=== PATIENT | male | born 1940 | race Caucasian/White ===

== ENCOUNTER → 2016-09-04 | Outpatient (CLI) | payer OTHER ==
[~2016-09-04] MED LIST: ATOR10TA82 PO; CHOL100010 PO; HYDR25TA5 PO; OMEG10007 PO
[2016-09-04 14:20] LABS: ALT/SGPT 31 U/L (12-78); AST/SGOT 20 U/L (15-37); BLOOD UREA NITROGEN 23 mg/dl (7-18); BUN/CREATININE RATIO 25.8 (10-20); CALCIUM 9.2 mg/dl (8.5-10.1); CARBON DIOXIDE 29 mmol/L (21-32); CHLORIDE 107 mmol/L (98-107); CHOLESTEROL 119 mg/dl (0-200); CREATININE 0.89 mg/dl (0.60-1.40); GLUCOSE 96 mg/dl (70-99); POTASSIUM 3.9 mmol/L (3.5-5.1); SODIUM 143 mmol/L (136-145); TRIGLYCERIDES 115 mg/dl (0-150); VERY LOW DENSITY LIPOPROT CALC 23 mg/dl
[2016-09-04 14:27] LABS: HEMATOCRIT 40.5 % (42-52); MEAN CORPUSCULAR HEMOGLOBIN 29.7 pg (25-34); MEAN CORPUSCULAR HGB CONC 33.3 g/dl (32-36); MEAN PLATELET VOLUME 10.3 fL (7.4-10.4); PLATELET COUNT 197 K/uL (130-400); RED BLOOD COUNT 4.55 M/uL (4.7-6.1); WHITE BLOOD COUNT 10.05 K/uL (4.8-10.8)
[2016-09-04 14:30] LABS: ALB/GLOB RATIO 1.1 (0.9-2); ALKALINE PHOSPHATASE 47 U/L (45-117); CHOLESTEROL/HDL RATIO 2.3; HDL CHOLESTEROL 52 mg/dl; LDL CHOLESTEROL CALCULATED 44 mg/dl; PROSTATE SPECIFIC ANTIGEN 0.893 ng/ml (0.000-4.000)
[2016-09-04 14:43] LABS: BASO % 0.4 %; BASO ABS # 0.04 K/uL (0-0.2); COMPLETE YES; EOS % 1.6 %; LYMPH % 63.4 %; LYMPH ABS # 6.37 K/uL (1.2-3.4); MONO % 4.3 %; NEUT % 30.3 %; SMUDGE CELLS PRESENT
--- NOTE | 2016-09-08 10:35 | CODING QUERY MEDICAL NECESSITY ---
SUPPORTING DIAGNOSIS NEEDED A supporting diagnosis is required for the test/procedure performed on this patient in order for us to be reimbursed by the patient's insurance. Please provide a supporting diagnosis for the following test/procedure listed below next to the test name along with your signature. *If there is no additional diagnosis for this patient that would support the following test/procedure please document that below next to the test/procedure. Test(s)/Procedure(s) that require a supporting diagnosis: DOS 09/04 * Vitamin D DIAGNOSIS: * PSA DIAGNOSIS: Provider Signature: Date: Thank you Sera [facility] Health Information Management Once completed, please kindly fax back to [phone] For questions please call [phone]
== END | disposition home or self-care (01) ==
LOC: C.LABBC 11:11
PROVIDERS: ATTEND Internal Medicine Geriatric Medicine
DX: I10 Essential (primary) hypertension (principal); C91.10 Chronic lymphocytic leukemia of B-cell type not having achieved remission; M19.90 Unspecified osteoarthritis, unspecified site; E78.5 Hyperlipidemia, unspecified

== ENCOUNTER → 2016-12-18 | Outpatient (CLI) | payer OTHER ==
[2016-12-18 17:27] LABS: BLOOD UREA NITROGEN 25 mg/dl (7-18)
== END | disposition home or self-care (01) ==
LOC: C.LABBC 13:38
PROVIDERS: ATTEND Physician Assistant
DX: Z00.00 Encounter for general adult medical examination without abnormal findings (principal); R51 Headache

== ENCOUNTER → 2016-12-23 | Outpatient (CLI) | payer OTHER ==
[~2016-12-23] MED LIST changes: +GADAVIST IV PRN
--- NOTE | 2016-12-23 13:27 | DIAGNOSTIC IMAGING REPORT ---
MRI OF THE BRAIN WITHOUT AND WITH IV CONTRAST CLINICAL HISTORY: Frequent headaches and retro-orbital pain COMPARISON STUDY: No previous studies for comparison. TECHNIQUE: MRI of the brain was performed from the vertex to the skull base utilizing various T1 and T2 weighted sequences. Following the IV administration of 7.5 mL of Gadavist contrast, additional enhanced images were obtained. FINDINGS: Sagittal T1, axial diffusion, proton density and T2 weighted axial, coronal FLAIR, and pre and post axial T1-weighted images were acquired. These were supplemented with post gadolinium coronal T1 weighted images. No intra or extra-axial mass lesions are visualized. Axial diffusion-weighted images reveal no evidence of acute or subacute infarction. There is no evidence of ventricular dilatation. Proton density T2-weighted and FLAIR images reveal mild foci of increased T2 signal within the periventricular white matter, likely on a small vessel basis. There are no abnormal flow voids. There is no evidence of pathologic enhancement. IMPRESSION: Essentially normal MRI of the brain for age. Electronically signed by: Faheem Arrington M.D. 12/23/2016 1:25 PM Dictated Date/Time: 12/23/2016 1:23 PM
== END | disposition home or self-care (01) ==
LOC: C.MRIBC 12:20
PROVIDERS: ATTEND Physician Assistant
DX: R51 Headache (principal)

== ENCOUNTER → 2017-02-10 | Outpatient (CLI) | payer OTHER ==
[~2017-02-10] MED LIST changes: -GADAVIST IV PRN
--- NOTE | 2017-02-10 11:42 | DIAGNOSTIC IMAGING REPORT ---
CHEST CT WITHOUT CONTRAST CT DOSE: 326.95 mGy.cm HISTORY: Pulmonary nodule R91.1 Solitary pulmonary [id number] TECHNIQUE: Multiaxial CT images of the chest were performed without contrast. COMPARISON: 08/11/2016 FINDINGS: The 5 mm nodule of the right middle lobe is unchanged. This appears represent a linear series of 3 small nodules again unchanged from the prior study. Lungs otherwise appear clear. There is no significant hilar or mediastinal adenopathy. There is been no change compared to the prior study. IMPRESSION: 1. Right middle lobe nodularity unchanged from the prior study. 2. Study is otherwise unremarkable. 3. Follow-up per Fleischner criteria. Please refer to below summary of Fleischner criteria recommendations for follow-up of incidental CT nodules (Daniela Amaya, Guidelines for management of small pulmonary nodules detected on CT scans: A statement from the Fleischner Society, Radiology 237: [phone].) SOLID NODULES Solitary nodule size: <6 mm * low risk patients: no follow-up needed * high risk patients: optional CT at 12 months Solitary nodule size: 6-8 mm * low risk patients: follow-up at 6-12 months, then consider further follow-up at 18-24 months * high risk patients: initial follow-up CT at 6-12 months and then at 18-24 months if no change Solitary nodule size: >8 mm * either low or high risk patients - consider follow-up CT at 3 months, and/or CT-PET, and/or biopsy Multiple nodules size: <6 mm * low risk patients: no routine follow-up * high risk patients: optional CT at 12 months Multiple nodules size: 6-8 mm * low risk patients: follow-up at 3-6 months, then consider further follow-up at 18-24 months * high risk patients: follow-up at 3-6 months, then at 18-24 months if no change Multiple nodules size: >8 mm * low risk patients: follow-up at 3-6 months, then consider further follow-up at 18-24 months * high risk patients: follow-up at 3-6 months, then at 18-24 months if no change Note: newly detected indeterminate nodule in persons 35 years of age or older. * Low risk patients: minimal or absent history of smoking and/or other known risk factors * high risk patients: history of smoking or of other known risk factors (e.g. first degree relative with lung cancer, or exposure to asbestos, radon, uranium) * if a nodule up to 8 mm is partly solid or is ground glass further follow-up is required after 24 months to exclude possible slow growing adenocarcinoma (LIGIA) SUBSOIL NODULES Solitary pure ground-glass nodule * nodule size <6 mm - no CT follow-up required * nodule size >=6 mm - follow-up CT at 6-12 months, then every 2 years until 5 years Solitary part-solid nodule * nodule size <6 mm - no CT follow-up required * nodule size >=6 mm - follow-up CT at 3-6 months. If unchanged, and solid component remains <6 mm, then annual follow-up for 5 years Multiple subsolid nodules * nodule size <6 mm - follow-up CT at 3-6 months, consider further follow-up at 2 and 4 years if stable * nodule size >=6 mm - follow-up CT at 3-6 months, subsequent management based on the most suspicious nodule(s) Electronically signed by: Saul Ramey M.D. 02/10/2017 11:40 AM Dictated Date/Time: 02/10/2017 11:35 AM
== END | disposition home or self-care (01) ==
LOC: C.CTS 10:29
PROVIDERS: ATTEND Internal Medicine Geriatric Medicine
DX: R91.1 Solitary pulmonary nodule (principal)

== ENCOUNTER → 2017-04-15 | Outpatient (CLI) | payer OTHER ==
[~2017-04-15] MED LIST changes: -ATOR10TA82 PO; +ATOR10TA88 PO; -CHOL100010 PO
[2017-04-15 17:04] LABS: ALT/SGPT 29 U/L (12-78); AST/SGOT 18 U/L (15-37); BLOOD UREA NITROGEN 24 mg/dl (7-18); BUN/CREATININE RATIO 27.7 (10-20); CALCIUM 9.4 mg/dl (8.5-10.1); CARBON DIOXIDE 29 mmol/L (21-32); CHLORIDE 109 mmol/L (98-107); CREATININE 0.85 mg/dl (0.60-1.40); GLUCOSE 82 mg/dl (70-99); POTASSIUM 4.1 mmol/L (3.5-5.1); SODIUM 142 mmol/L (136-145)
[2017-04-15 17:07] LABS: ALB/GLOB RATIO 1.2 (0.9-2); ALKALINE PHOSPHATASE 43 U/L (45-117)
[2017-04-15 19:56] LABS: BASO % 0.3 %; BASO ABS # 0.05 K/uL (0-0.2); COMPLETE YES; ECHINOCYTES 1+; EOS % 0.9 %; HEMATOCRIT 41.5 % (42-52); IG% 0.1 %; LYMPH % 64.8 %; LYMPH ABS # 9.26 K/uL (1.2-3.4); MEAN CELL VOLUME 88.5 fL (80-100); MEAN CORPUSCULAR HEMOGLOBIN 29.9 pg (25-34); MEAN CORPUSCULAR HGB CONC 33.7 g/dl (32-36); MEAN PLATELET VOLUME 9.9 fL (7.4-10.4); MONO % 3.3 %; NEUT % 30.6 %; PLATELET COUNT 219 K/uL (130-400); RED BLOOD COUNT 4.69 M/uL (4.7-6.1); SMUDGE CELLS PRESENT
== END | disposition home or self-care (01) ==
LOC: C.LABBC 13:24
PROVIDERS: ATTEND Nurse Practitioner Family
DX: D73.1 Hypersplenism (principal)

== ENCOUNTER 2017-07-14 13:12 | Emergency (ER) | payer OTHER ==
[~2017-07-14] VITALS: Ht 180.3 cm; Wt 78.0 kg
[~2017-07-14 13:12] MED LIST changes: +ATOR10TA82 PO; -ATOR10TA88 PO
[2017-07-14 13:13] VITALS: TEMP 36.8; Ht 180.3 cm; Wt 78.0 kg
--- NOTE | 2017-07-14 14:26 | EMERGENCY ROOM VISIT NOTE ---
History First contact with patient: 13:54 Chief Complaint: PENIS PAIN Stated Complaint: BLACK/BLUE PENIS Nursing Triage Summary: Thursday evening noticed penis was black and blue. States he thought he bumped it on thursday when he was apartment cleaning. Went to see Dr. Hopkins today and sent to ED for eval. History of Present Illness The patient is a 77 year old male who presents to the Emergency Room with complaints of black and blue penis that he first noticed approximately 4 days ago. The patient states he was doing a lot of housework, and thinks he may have bumped the penis, but does not remember any specific injury. He states that there is a small bump on the front of his foreskin that is a little bit sore and irritated. He did call his PCPs office today and spoke with the nurse, who told him to go to the ER for further evaluation. Patient denies any pain in the penis or testicles, any difficulty with urination, any urinary symptoms of dysuria, frequency, urgency, hematuria, cloudy or foul-smelling urine, or penile discharge. He denies any fever/chills, abdominal pain, back pain, diarrhea or constipation, rash. He does note that he has been feeling anxious about this bruise, and checked his blood pressure a few times, noting that it has been a little higher than usual, with the top number in the 140s. He states he will take an aspirin once in a while she gets a headache, but denies any daily blood thinners. He denies being sexually active, stating that his is in a longterm. Review of Systems A complete 10 point review of systems was reviewed with the patient with pertinent positives and negatives as per history of present illness. All else were negative. Past Medical/Surgical History Medical Problems: (1) Leukemia Family History FH: cancer FH: heart disease Social History Smoking Status: Former Smoker Marital Status: Housing Status: lives with significant other Current/Historical Medications Scheduled Atorvastatin (Lipitor), 10 MG PO DAILY Cholecalciferol (Vitamin D), 1,000 UNITS PO DAILY Fish Oil ([place]-3), 1,200 MG PO BID Hydrochlorothiazide (Hydrochlorothiazide), 25 MG PO DAILY Allergies NKA Physical Exam Vital Signs Date Time Temp Pulse Resp B/P (MAP) Pulse Ox O2 Delivery O2 Flow Rate FiO2 07/14/17 16:28 59 07/14/17 15:51 61 18 151/71 96 Room Air 07/14/17 14:54 98 Room Air 07/14/17 14:54 99 Room Air 07/14/17 13:50 67 18 156/75 97 Room Air 07/14/17 13:13 36.8 73 16 163/79 98 Room Air Physical Exam CONSTITUTIONAL: No acute distress. Well appearing and well nourished. Alert and oriented X 4 with normal affect. HEENT: Normocephalic, atraumatic. Pupils equal, round and reactive to light, EOMI. TMs normal. Pharynx normal. NECK: Supple, full active range of motion without discomfort. RESPIRATORY: Clear to auscultation bilaterally with no wheezing, crackles, rhonchi or stridor. Equal expansion bilaterally. CARDIOVASCULAR: Regular rate and rhythm with no murmurs, rubs or gallops. Normal peripheral perfusion. No edema. GASTROINTESTINAL: Soft, nontender, nondistended. Bowel sounds present in all quadrants. GENITOURINARY: Uncircumcised. There is an ecchymotic area mild central swelling on the anterior portion of the foreskin. No erythema, edema, or tenderness to palpation. No bleeding or discharge from the meatus noted. Scrotum is normal with no swelling or tenderness, no testicular tenderness or tenderness of the epididymis with palpation. MUSCULOSKELETAL: Full range of motion of all joints without discomfort. INTEGUMENTARY: No rash or other significant dermatologic conditions noted. NEUROLOGIC: Cranial nerves II-XII grossly intact. No focal neurologic deficits noted. Medical Decision & Procedures ER Provider Diagnostic Interpretation: Penile ULTRASOUND HISTORY: eval bump on penis, black and blue COMPARISON: None. FINDINGS: Real-time sonographic imaging of the penis was performed with sales representative meats images. No sonographic abnormality within the superficial soft tissues of the penis. No fluid collections or masses detected. IMPRESSION: No sonographic abnormality within the penis. Laboratory Results 07/14/17 14:30 Red Blood Count 4.70, Mean Corpuscular Volume 88.5, Mean Corpuscular Hemoglobin 30.9, Mean Corpuscular Hemoglobin Concent 34.9, Mean Platelet Volume 9.7, Neutrophils (%) (Auto) 30.2, Lymphocytes (%) (Auto) 65.5, Monocytes (%) (Auto) 3.4, Eosinophils (%) (Auto) 0.6, Basophils (%) (Auto) 0.2, Neutrophils # (Auto) 4.32, Lymphocytes # (Auto) 9.35, Monocytes # (Auto) 0.48, Eosinophils # (Auto) 0.09, Basophils # (Auto) 0.03 07/14/17 14:30 Test 07/14/17 14:30 White Blood Count 14.28 K/uL (4.8-10.8) Red Blood Count 4.70 M/uL (4.7-6.1) Hemoglobin 14.5 g/dL (14.0-18.0) Hematocrit 41.6 % (42-52) Mean Corpuscular Volume 88.5 fL (80-100) Mean Corpuscular Hemoglobin 30.9 pg (25-34) Mean Corpuscular Hemoglobin Concent 34.9 g/dl (32-36) Platelet Count 196 K/uL (130-400) Mean Platelet Volume 9.7 fL (7.4-10.4) Neutrophils (%) (Auto) 30.2 % Lymphocytes (%) (Auto) 65.5 % Monocytes (%) (Auto) 3.4 % Eosinophils (%) (Auto) 0.6 % Basophils (%) (Auto) 0.2 % Neutrophils # (Auto) 4.32 K/uL (1.4-6.5) Lymphocytes # (Auto) 9.35 K/uL (1.2-3.4) Monocytes # (Auto) 0.48 K/uL (0.11-0.59) Eosinophils # (Auto) 0.09 K/uL (0-0.5) Basophils # (Auto) 0.03 K/uL (0-0.2) RDW Standard Deviation 43.3 fL (36.4-46.3) RDW Coefficient of Variation 13.3 % (11.5-14.5) Immature Granulocyte % (Auto) 0.1 % Immature Granulocyte # (Auto) 0.01 K/uL (0.00-0.02) Smudge Cells PRESENT Prothrombin Time 10.7 SECONDS (9.0-12.0) Prothromb Time International Ratio 1.0 (0.9-1.1) Activated Partial Thromboplast Time 31.4 SECONDS (21.0-31.0) Partial Thromboplastin Ratio 1.2 Urine Color YELLOW Urine Appearance CLEAR (CLEAR) Urine pH 5.0 (4.5-7.5) Urine Specific [facility] 1.022 (1.000-1.030) Urine Protein NEG (NEG) Urine Glucose (UA) NEG (NEG) Urine Ketones NEG (NEG) Urine Occult Blood NEG (NEG) Urine Nitrite NEG (NEG) Urine Bilirubin NEG (NEG) Urine Urobilinogen NEG (NEG) Urine Leukocyte Esterase NEG (NEG) Anion Gap 9.0 mmol/L (3-11) Est Creatinine Clear Calc Drug Dose 68.6 ml/min Estimated GFR () 90.2 Estimated GFR (Non- 77.8 BUN/Creatinine Ratio 23.4 (10-20) Calcium Level 9.4 mg/dl (8.5-10.1) Total Bilirubin 2.1 mg/dl (0.2-1) Direct Bilirubin 0.3 mg/dl (0-0.2) Aspartate Amino Transf (AST/SGOT) 21 U/L (15-37) Alanine Aminotransferase (ALT/SGPT) 26 U/L (12-78) Alkaline Phosphatase 47 U/L (45-117) Total Protein 7.2 gm/dl (6.4-8.2) Albumin 3.9 gm/dl (3.4-5.0) Medical Decision CC: Patient presenting with complaint of bruising of penis Interpretation of Labs: Mild leukocytosis, no anemia, no significant electrolyte abnormalities, normal renal function, normal liver enzymes. Normal coagulation factors. UA negative for UTI, no hematuria. Differential Diagnosis: Includes, but not limited to ecchymosis secondary to trauma, urinary tract infection, epididymitis, phimosis/paraphimosis, among others. Medication Reconciliation: I attest that I have personally reviewed the patient' s current medication list. Vital signs review: I reviewed the patient's vital signs and interpret them as follows: T: Afebrile; BP: Hypertensive; HR: Within normal limits; RR: Within normal limits; Pulse Ox: Within normal limits on room air. Blood pressure screening: The patient was found to have an elevated blood pressure and was referred to their primary doctor for recheck and further treatment. Summary: Patient was evaluated at bedside, history and physical exam performed. Patient is alert, in no acute distress, resting comfortably in the stretcher. There is bruising noted to the anterior foreskin of the penile shaft, with a small area of swelling central to the ecchymosis. There is no discoloration of the head of the penis, foreskin easily retracts, no edema. No tenderness to palpation. No blood or discharge noted at the meatus. Scrotum and testicles are nontender, no ecchymosis, no erythema or swelling. Orders were placed at bedside for basic labs, UA, ultrasound to evaluate for traumatic injury of the penis. Patient discussed with Dr. Calero, who agrees with my assessment and plan. Labs reviewed as above, no acute abnormalities. No UTI or hematuria. Ultrasound reviewed and is unremarkable. Patient reassessed multiple times throughout ED stay, he remains without pain or other complaint, and states he would like to be discharged home. Patient was updated on all results and educated on management of his bruising, was encouraged to follow closely with his PCP. Patient was also given return precautions should his symptoms worsen in any way , he verbalized understanding. Patient was discharged home in stable condition and ambulatory. Medication Reconcilliation Current Medication List: was personally reviewed by me Blood Pressure Screening Patient's blood pressure: Elevated blood pressure Blood pressure disposition: Referred to PCP Impression Primary Impression: Bruising of penis Departure Information Dispostion Home / Self-Care Condition GOOD Referrals No Doctor, Assigned (PCP) Patient Instructions ED Contusion Testicles Or Scrotum, My [facility] Additional Instructions You have been treated in the emergency department today for bruising on your penis. Lab results and imaging studies do not show any concerning findings that would indicate a need for admission to the hospital or surgery. You may alternate between applying cool and warm compresses to the area of bruising for comfort. Follow-up with your primary care provider in the next few days if your symptoms are not improving. Please return to the emergency department for worsening symptoms, including severe pain, difficulty urinating or having urinary incontinence, blood in the urine, low back pain, abdominal pain, fever/chills, or any other concerns. Problem Qualifiers Primary Impression: Bruising of penis Encounter type: initial encounter Qualified Codes: S30.21XA - Contusion of penis, initial encounter
[2017-07-14] MEDS ORDERED: CHOL100010 PO (14:35)
[2017-07-14 14:54] VITALS: O2SAT 98
[2017-07-14 15:01] LABS: HEMATOCRIT 41.6 % (42-52); MEAN CELL VOLUME 88.5 fL (80-100); MEAN CORPUSCULAR HEMOGLOBIN 30.9 pg (25-34); MEAN CORPUSCULAR HGB CONC 34.9 g/dl (32-36); MEAN PLATELET VOLUME 9.7 fL (7.4-10.4); PLATELET COUNT 196 K/uL (130-400); WHITE BLOOD COUNT 14.28 K/uL (4.8-10.8)
[2017-07-14 15:07] LABS: URINE APPEARANCE CLEAR (CLEAR); URINE BILIRUBIN NEG (NEG); URINE COLOR YELLOW; URINE NITRITE NEG (NEG); URINE SPECIFIC GRAVITY 1.022 (1.000-1.030); UROBILINOGEN NEG (NEG)
[2017-07-14 15:08] LABS: PARTIAL THROMBOPLASTIN RATIO 1.2; PROTHROMBIN TIME (PATIENT) 10.7 SECONDS (9.0-12.0)
[2017-07-14 15:10] LABS: MANUAL MICROSCOPIC REQUIRED? NO; REVIEW REQ? NO
[2017-07-14 15:23] LABS: BUN/CREATININE RATIO 23.4 (10-20); CALCIUM 9.4 mg/dl (8.5-10.1); CREATININE 0.93 mg/dl (0.60-1.40); POTASSIUM 3.9 mmol/L (3.5-5.1)
--- NOTE | 2017-07-14 15:43 | DIAGNOSTIC IMAGING REPORT ---
Penile ULTRASOUND HISTORY: eval bump on penis, black and blue COMPARISON: None. FINDINGS: Real-time sonographic imaging of the penis was performed with home office representative images. No sonographic abnormality within the superficial soft tissues of the penis. No fluid collections or masses detected. IMPRESSION: No sonographic abnormality within the penis. Electronically signed by: Beua Bernardo M.D. 07/14/2017 3:41 PM Dictated Date/Time: 07/14/2017 3:40 PM
[2017-07-14 15:49] LABS: BASO % 0.2 %; BASO ABS # 0.03 K/uL (0-0.2); COMPLETE YES; EOS % 0.6 %; IG% 0.1 %; LYMPH % 65.5 %; LYMPH ABS # 9.35 K/uL (1.2-3.4); MONO % 3.4 %; NEUT % 30.2 %
[2017-07-14 15:51] VITALS: BP 151/71; O2SAT 96
--- NOTE | 2017-07-14 15:56 | EMERGENCY ROOM VISIT NOTE ---
ED Visit Note First contact with patient: 13:54 Patient was seen by our PA/BRAIDING MACHINE TENDER. I was involved in the patient's care and did evaluate the patient myself. I was involved in the care throughout the ER stay. The patient presents with discoloration to the penile shaft. The area appears contused. No cellulitis. Ultrasound and urine testing is unrevealing. He does not take anticoagulants. I do think he can be discharged with outpatient follow-up. He was reassured.
[2017-07-14 16:28] VITALS: PULSE 59
[2017-07-14 17:34] LABS: SMUDGE CELLS PRESENT
== END 2017-07-14 17:26 | disposition home or self-care (01) ==
LOC: C.EDB 13:13
DX: S30.21XA Contusion of penis, initial encounter (principal); X58.XXXA Exposure to other specified factors, initial encounter; R03.0 Elevated blood-pressure reading, without diagnosis of hypertension; Z85.6 Personal history of leukemia; Z87.891 Personal history of nicotine dependence

== ENCOUNTER → 2017-09-21 | Outpatient (CLI) | payer OTHER ==
[~2017-09-21] MED LIST changes: +CHOL100010 PO
[2017-09-21 16:58] LABS: HEMATOCRIT 43.2 % (42-52); HEMOGLOBIN 14.6 g/dL (14.0-18.0); MEAN CELL VOLUME 88.7 fL (80-100); MEAN CORPUSCULAR HGB CONC 33.8 g/dl (32-36); MEAN PLATELET VOLUME 9.8 fL (7.4-10.4); PLATELET COUNT 249 K/uL (130-400); RED CELL DISTRIBUTION WIDTH CV 13.4 % (11.5-14.5); RED CELL DISTRIBUTION WIDTH SD 43.3 fL (36.4-46.3); WHITE BLOOD COUNT 17.93 K/uL (4.8-10.8)
[2017-09-21 17:17] LABS: ALBUMIN 3.9 gm/dl (3.4-5.0); BLOOD UREA NITROGEN 26 mg/dl (7-18); CALCIUM 9.3 mg/dl (8.5-10.1); CARBON DIOXIDE 30 mmol/L (21-32); GLUCOSE 91 mg/dl (70-99); POTASSIUM 3.9 mmol/L (3.5-5.1); SODIUM 139 mmol/L (136-145)
[2017-09-21 17:22] LABS: ALKALINE PHOSPHATASE 54 U/L (45-117); ALT/SGPT 43 U/L (12-78); AST/SGOT 23 U/L (15-37); CHOLESTEROL 137 mg/dl (0-200); LDL CHOLESTEROL CALCULATED 52 mg/dl; TOTAL PROTEIN 7.5 gm/dl (6.4-8.2)
[2017-09-21 17:50] LABS: BASO % 0.2 %; BASO ABS # 0.04 K/uL (0-0.2); EOS ABS # 0.18 K/uL (0-0.5); IG# 0.04 K/uL (0.00-0.02); LYMPH % 61.1 %; LYMPH ABS # 10.95 K/uL (1.2-3.4); MONO % 3.6 %; MONO ABS # 0.64 K/uL (0.11-0.59); NEUT % 33.9 %; NEUT ABS # 6.08 K/uL (1.4-6.5)
== END | disposition home or self-care (01) ==
LOC: C.LABBC 15:14
PROVIDERS: ATTEND Internal Medicine Geriatric Medicine
DX: I10 Essential (primary) hypertension (principal); C91.10 Chronic lymphocytic leukemia of B-cell type not having achieved remission; Z85.46 Personal history of malignant neoplasm of prostate; M19.90 Unspecified osteoarthritis, unspecified site; E78.5 Hyperlipidemia, unspecified

== ENCOUNTER 2017-12-27 20:34 | Emergency (ER) | payer OTHER ==
[~2017-12-27] VITALS: Ht 182.9 cm; Wt 81.8 kg
[2017-12-27 20:37] VITALS: BP 135/74; PULSE 77; TEMP 36.7; O2SAT 94; Ht 182.9 cm; Wt 81.8 kg
[2017-12-27] MEDS ORDERED: AMLO-110 PO (21:00)
[2017-12-27] MEDS ORDERED: LIDOCAINE 1% BUFFERED INJ 5 ML VIAL INFIL ONE (21:00)
--- NOTE | 2017-12-28 00:55 | EMERGENCY ROOM VISIT NOTE ---
History First contact with patient: 20:41 Chief Complaint: LACERATION/CUT (NON-SUTURE) Stated Complaint: BIT TOUNGUE, WILL NOT STOP BLEEDING Nursing Triage Summary: Pt bit the left side of his tongue History of Present Illness The patient is a 77 year old male who presents to the Emergency Room with complaints of a laceration to the left side of his tongue. The patient reports that he was eating when he bit his tongue around 6 PM, or 2-1/2 hours ago. He has been unable to stop the bleeding. He denies any significant pain. The patient currently is not on any blood thinners or aspirin. Review of Systems 6 system review was performed and was negative except for pertinent positives and negatives as indicated in history of present illness Past Medical/Surgical History Medical Problems: (1) Leukemia Family History FH: cancer FH: heart disease Social History Smoking Status: Former Smoker Alcohol Use: occasionally Marital Status: Occupation Status: retired Current/Historical Medications Scheduled Amlodipine (Norvasc), 5 MG PO DAILY Atorvastatin (Lipitor), 10 MG PO DAILY Cholecalciferol (Vitamin D), 1,000 UNITS PO DAILY Fish Oil ([place]-3), 1,200 MG PO BID Physical Exam Vital Signs Date Time Temp Pulse Resp B/P (MAP) Pulse Ox O2 Delivery O2 Flow Rate FiO2 12/27/17 20:37 36.7 77 18 135/74 94 Room Air Physical Exam CONSTITUTIONAL: Healthy and well nourished. Alert and oriented X 3 with positive affect. HEENT: Normocephalic, atraumatic. Pupils equal, round and reactive. OROPHARYNX: The patient has a 1 cm flap laceration on the left lateral tongue. Mild oozing is noted on initial exam. The flap appears vascularly intact. NECK: Full active range of motion without discomfort. INTEGUMENTARY: No rash or other significant dermatologic conditions noted. Medical Decision & Procedures Procedure Tongue laceration repair was performed under local anesthesia after receiving verbal consent from the patient. Using buffered 1% lidocaine without epinephrine, good local anesthesia was administered. The wound was then approximated using 6-0 Vicryl simple interrupted sutures with excellent hemostasis. ED Course Patient history and physical exam were performed. Nurse's notes were reviewed. Vital signs were reviewed and were normal. Laceration repair was performed under local anesthesia. The patient was given instructions on a soft food or liquid diet for the next several days until the wound further heals. He was instructed to watch for any signs of infection, and return to the emergency department for any further wound concerns or persistent bleeding. The patient was happy with plan of care, voiced understanding of all discharge instructions , and denied any pain at the time of discharge. Patient was also evaluated by Dr. Flores, ED attending physician, who agrees with workup and plan of care. Medical Decision Medication Reconcilliation Current Medication List: was personally reviewed by me Blood Pressure Screening Patient's blood pressure: Normal blood pressure Impression Primary Impression: Tongue laceration Departure Information Dispostion Home / Self-Care Condition [employer] HOME CARE DOCUMENTATION FORM, IMPORTANT VISIT INFORMATION Patient Instructions My [facility] Additional Instructions Soft food or liquid diet over the next several days to avoid further wound irritation. Be careful when eating that you do not bite your tongue. Return to the emergency department for any persistent bleeding or other wound concerns. The stitches should start to dissolve within the next 3-4 days. Problem Qualifiers Primary Impression: Tongue laceration Encounter type: initial encounter Qualified Codes: S01.512A - Laceration without foreign body of oral cavity, initial encounter
== END 2017-12-27 21:27 | disposition home or self-care (01) ==
LOC: C.EDB 20:36 → C.EDD 21:27
DX: S01.512A Laceration without foreign body of oral cavity, initial encounter (principal); X58.XXXA Exposure to other specified factors, initial encounter; Z87.891 Personal history of nicotine dependence

== ENCOUNTER → 2018-04-15 | Outpatient (CLI) | payer OTHER ==
[~2018-04-15] MED LIST changes: +AMLO5TAB3 PO; -HYDR25TA5 PO
[2018-04-15 17:31] LABS: ALBUMIN 3.6 gm/dl (3.4-5.0); ALKALINE PHOSPHATASE 48 U/L (45-117); ALT/SGPT 26 U/L (12-78); AST/SGOT 19 U/L (15-37); BLOOD UREA NITROGEN 23 mg/dl (7-18); CALCIUM 9.1 mg/dl (8.5-10.1); CARBON DIOXIDE 25 mmol/L (21-32); CREATININE 0.98 mg/dl (0.60-1.40); GLUCOSE 98 mg/dl (70-99); POTASSIUM 3.8 mmol/L (3.5-5.1); SODIUM 142 mmol/L (136-145); TOTAL PROTEIN 7.1 gm/dl (6.4-8.2)
[2018-04-15 18:37] LABS: HEMATOCRIT 41.9 % (42-52); HEMOGLOBIN 13.7 g/dL (14.0-18.0); MEAN CELL VOLUME 90.5 fL (80-100); MEAN CORPUSCULAR HEMOGLOBIN 29.6 pg (25-34); MEAN CORPUSCULAR HGB CONC 32.7 g/dl (32-36); PLATELET COUNT 216 K/uL (130-400); RED CELL DISTRIBUTION WIDTH CV 14.1 % (11.5-14.5); RED CELL DISTRIBUTION WIDTH SD 46.2 fL (36.4-46.3); WHITE BLOOD COUNT 16.81 K/uL (4.8-10.8)
[2018-04-15 18:52] LABS: BASO % 0.2 %; BASO ABS # 0.04 K/uL (0-0.2); EOS % 0.7 %; EOS ABS # 0.12 K/uL (0-0.5); IG# 0.03 K/uL (0.00-0.02); LYMPH % 69.7 %; LYMPH ABS # 11.72 K/uL (1.2-3.4); MONO ABS # 0.51 K/uL (0.11-0.59); NEUT % 26.2 %; NEUT ABS # 4.39 K/uL (1.4-6.5)
== END | disposition home or self-care (01) ==
LOC: C.LABBC 13:13
PROVIDERS: ATTEND Internal Medicine Hematology & Oncology
DX: D73.1 Hypersplenism (principal)